=== PATIENT | male | born 1980 ===

== ENCOUNTER 2021-07-01 20:10 | Inpatient (IN) | payer OTHER, SELFPAY ==
[~2021-07-01 20:10] MED LIST: Iopamidol-370 76% 500 ML 1 ML ONE
[2021-07-01] MEDS ORDERED: Rocuronium Bromide 10 MG/ML (10ML VIAL) ONE (20:18)
[2021-07-01] MEDS ORDERED: Fentanyl 100 MCG/2 ML VIAL ONE (20:18)
[2021-07-01 20:27] LABS: Hemoglobin 14.6 g/dL (14.0-18.0); Mean Corpuscular HGB CONC 34.5 g/dL (32.0-36.0); Mean Corpuscular Hemoglobin 31.6 pg (27.0-31.0); Mean Corpuscular Volume 91.6 fL (78.0-98.0); Mean Platelet Volume 7.4 fL (7.4-10.4); Platelet Count 307 thou/uL (130-400); RBC Distribution Width 13.2 % (11.5-14.5); Red Blood Cell (RBC) Count 4.63 mill/uL (4.70-6.10); White Blood Cell (WBC) Count 31.8 thou/uL (4.8-10.8)
[2021-07-01 20:40] LABS: INR-International Normal Ratio 1.3; PTT 33.8 sec (22.9-36.1)
[2021-07-01 20:46] LABS: Band 25 % (5-11); Lymphocytes 8 % (21-51); MDiff Complete? YES; Monocytes 4 % (0-10); Neutrophil 63 % (42-75); Platelet Morphology Comment Appears Adequate; RBC Morphology Normal
[2021-07-01 20:52] LABS: ALT (SGPT) 52 U/L (8-55); AST (SGOT) 98 U/L (5-34); Albumin 3.8 g/dL (3.5-5.0); Alkaline Phosphatase 98 U/L (40-110); Anion Gap 19 mmol/L (10-20); BUN (Urea Nitrogen) 9 mg/dL (8.9-20.6); Bilirubin, Total 0.5 mg/dL (0.2-1.2); Calc. Creatinine Clearance 0 mL/min (70-130); Calcium 8.1 mg/dL (7.8-10.44); Carbon Dioxide 18 mmol/L (22-29); Chloride 109 mmol/L (98-107); Globulin 2.3 g/dL (2.4-3.5); Glucose 101 mg/dL (70-105); Potassium 4.3 mmol/L (3.5-5.1); Protein, Total 6.1 g/dL (6.0-8.3); Sodium 142 mmol/L (136-145)
[2021-07-01] MEDS ORDERED: Ondansetron PF 4 MG/2 ML Vial IVP PRN (20:53)
[2021-07-01] MEDS ORDERED: Insulin Regular 300 UNITS/3 ML VIAL SC PRN (20:53)
[2021-07-01] MEDS ORDERED: Dextrose 50% Abboject 50 ML SYRINGE SLOW IVP PRN (20:53)
[2021-07-01] MEDS ORDERED: Morphine 2 MG/ML VIAL SLOW IVP PRN (20:53)
[2021-07-01] MEDS ORDERED: Dextrose 5% in Water 1,000 ML IV PRN (20:53)
[2021-07-01 21:05] LABS: Actual Bicarbonate (HCO3a) 16.9 mEq/L (22-28); Analyzer IN Cardio ER; Base Excess (BEa) -11.2 mEq/L (-2.0 to +3.0); Calcium, Ionized (arterial) 1.07 mmol/L (1.12-1.30); Carboxyhemoglobin (COHb) 0.3 gm% (0.0-3.0); Hemoglobin (Hb) 13.2 g/dL (14.0-18.0); O2 Tension (PaO2), arterial 322.3 mmHg (80.0-100.0); Potassium - ABG Lab 4.04 mmol/L (3.70-5.30)
[2021-07-01 21:12] LABS: Puncture Site LRA; pH, Arterial 7.18 (7.35-7.45)
[2021-07-01] MEDS ORDERED: Sodium Chloride 0.9% (PF) 10 ML VIAL FS PRN (21:15)
[2021-07-01] MEDS ORDERED: Calcium Chloride 1 GM/10 ML Abboject SYRINGE IVP SCH (22:00)
[2021-07-01 23:33] LABS: Lactic Acid 4.2 mmol/L (0.5-2.2)
[2021-07-02] MEDS: Sodium Chloride 0.9% 1,000 ML IV SCH ×4 (00:15→23:46)
[2021-07-02] MEDS ORDERED: Sodium Chloride 0.9% 1,000 ML IV SCH (00:15)
[2021-07-02 01:13] LABS: Hemoglobin 13.1 g/dL (14.0-18.0); Mean Corpuscular HGB CONC 34.3 g/dL (32.0-36.0); Mean Corpuscular Hemoglobin 30.6 pg (27.0-31.0); Mean Corpuscular Volume 89.4 fL (78.0-98.0); Mean Platelet Volume 7.7 fL (7.4-10.4); Platelet Count 257 thou/uL (130-400); RBC Distribution Width 13.7 % (11.5-14.5); Red Blood Cell (RBC) Count 4.26 mill/uL (4.70-6.10); White Blood Cell (WBC) Count 20.6 thou/uL (4.8-10.8)
[2021-07-02 01:20] LABS: Band 10 % (5-11); Lymphocytes 10 % (21-51); MDiff Complete? YES; Monocytes 20 % (0-10); Neutrophil 59 % (42-75); Platelet Morphology Comment Appears Adequate; RBC Morphology Normal; Reactive Lymphocytes 1 % (0-10)
[2021-07-02 01:23] LABS: Anion Gap 17 mmol/L (10-20); BUN (Urea Nitrogen) 16 mg/dL (8.9-20.6); Calc. Creatinine Clearance 0 mL/min (70-130); Calcium 7.8 mg/dL (7.8-10.44); Carbon Dioxide 20 mmol/L (22-29); Chloride 110 mmol/L (98-107); Glucose 83 mg/dL (70-105); Potassium 4.5 mmol/L (3.5-5.1); Sodium 142 mmol/L (136-145)
[2021-07-02] MEDS ORDERED: Acetaminophen 650 MG Suppository PR PRN (04:19)
[2021-07-02] MEDS ORDERED: hydrALAZINE 20 MG/ML VIAL SLOW IVP PRN (04:20)
[2021-07-02 04:50] LABS: Band 13 % (5-11); Hemoglobin 12.9 g/dL (14.0-18.0); Lymphocytes 2 % (21-51); MDiff Complete? YES; Mean Corpuscular HGB CONC 35.1 g/dL (32.0-36.0); Mean Corpuscular Hemoglobin 31.3 pg (27.0-31.0); Mean Corpuscular Volume 89.2 fL (78.0-98.0); Mean Platelet Volume 8.2 fL (7.4-10.4); Monocytes 6 % (0-10); Neutrophil 79 % (42-75); Platelet Count 209 thou/uL (130-400); Platelet Morphology Comment Appears Adequate; RBC Distribution Width 13.8 % (11.5-14.5); White Blood Cell (WBC) Count 22.4 thou/uL (4.8-10.8)
[2021-07-02 04:53] LABS: Phosphorus 3.5 mg/dL (2.3-4.7)
[2021-07-02 05:10] LABS: Anion Gap 17 mmol/L (10-20); BUN (Urea Nitrogen) 18 mg/dL (8.9-20.6); Calc. Creatinine Clearance 98 mL/min (70-130); Carbon Dioxide 21 mmol/L (22-29); Chloride 110 mmol/L (98-107); Glucose 96 mg/dL (70-105); Magnesium 1.5 mg/dL (1.6-2.6); Sodium 143 mmol/L (136-145)
[2021-07-02] MEDS: ceFAZolin Sodium/D5W 2 GM in Premix Bag 1 BAG IVPB SCH ×3 (06:10→22:01)
[2021-07-02] MEDS ORDERED: Magnesium Sulfate 4 GM in Sodium Chloride 0.9% 250 ML 250 ML IV SCH (07:15)
[2021-07-02] MEDS: Pantoprazole 40 MG VIAL IVP SCH (08:09)
[2021-07-02] MEDS: Acetaminophen 650 MG/20.3 ML UDCUP PO SCH ×3 (08:24→20:35)
[2021-07-02] MEDS ORDERED: Fentanyl CADD 100 ML ONE (08:31)
[2021-07-02] MEDS: Labetalol HCl 100 MG/20 ML VIAL SLOW IVP PRN ×2 (09:42→11:12)
[2021-07-02 10:26] LABS: Sodium 142 mmol/L (136-145)
[2021-07-02 10:58] LABS: Actual Bicarbonate (HCO3a) 18.3 mEq/L (22-28); Base Excess (BEa) -4.5 mEq/L (-2.0 to +3.0); CO2 Tension 27.3 mmHg (35.0-45.0); Calcium, Ionized (arterial) 1.09 mmol/L (1.12-1.30); Carboxyhemoglobin (COHb) 0.3 gm% (0.0-3.0); Hemoglobin (Hb) 11.5 g/dL (14.0-18.0); O2 Tension (PaO2), arterial 113.8 mmHg (80.0-100.0); Potassium - ABG Lab 4.29 mmol/L (3.70-5.30); pH, Arterial 7.45 (7.35-7.45)
[2021-07-02 11:05] LABS: ALV-art Gradient 208.575 mmHg (0-20)
[2021-07-02] MEDS ORDERED: Calcium Chloride 1 GM/10 ML Abboject SYRINGE IVP SCH (11:15)
[2021-07-02 14:31] LABS: Anion Gap 14 mmol/L (10-20); BUN (Urea Nitrogen) 22 mg/dL (8.9-20.6); Calc. Creatinine Clearance 120 mL/min (70-130); Calcium 10.1 mg/dL (7.8-10.44); Carbon Dioxide 19 mmol/L (22-29); Chloride 114 mmol/L (98-107); Glucose 120 mg/dL (70-105); Magnesium 2.7 mg/dL (1.6-2.6); Potassium 4.7 mmol/L (3.5-5.1); Sodium 142 mmol/L (136-145)
[2021-07-02 17:31] LABS: SARS-CoV-2 NAA Rapid Test Not Detected (NotDetected)
[2021-07-03] MEDS: Acetaminophen 650 MG/20.3 ML UDCUP PO SCH ×4 (03:32→20:49)
[2021-07-03] MEDS: hydrALAZINE 20 MG/ML VIAL SLOW IVP PRN ×2 (03:33→07:57)
[2021-07-03 04:23] LABS: Band 28 % (5-11); Hemoglobin 9.9 g/dL (14.0-18.0); Lymphocytes 12 % (21-51); MDiff Complete? YES; Mean Corpuscular HGB CONC 34.8 g/dL (32.0-36.0); Mean Corpuscular Hemoglobin 31.3 pg (27.0-31.0); Mean Corpuscular Volume 89.9 fL (78.0-98.0); Mean Platelet Volume 8.9 fL (7.4-10.4); Monocytes 11 % (0-10); Neutrophil 48 % (42-75); Platelet Count 147 thou/uL (130-400); Platelet Morphology Comment Appears Adequate; RBC Distribution Width 13.5 % (11.5-14.5); RBC Morphology Normal; Reactive Lymphocytes 1 % (0-10); Red Blood Cell (RBC) Count 3.17 mill/uL (4.70-6.10); White Blood Cell (WBC) Count 19.2 thou/uL (4.8-10.8)
[2021-07-03] MEDS ORDERED: hydrALAZINE 20 MG/ML VIAL SLOW IVP SCH (05:00)
[2021-07-03] MEDS: ceFAZolin Sodium/D5W 2 GM in Premix Bag 1 BAG IVPB SCH ×3 (05:24→21:45)
[2021-07-03] MEDS: Sodium Chloride 0.9% 1,000 ML IV SCH (07:18)
[2021-07-03] MEDS: Pantoprazole 40 MG VIAL IVP SCH (07:58)
[2021-07-03 08:19] LABS: Anion Gap 10 mmol/L (10-20); BUN (Urea Nitrogen) 17 mg/dL (8.9-20.6); Calc. Creatinine Clearance 180 mL/min (70-130); Calcium 8.5 mg/dL (7.8-10.44); Carbon Dioxide 23 mmol/L (22-29); Chloride 113 mmol/L (98-107); Glucose 109 mg/dL (70-105); Magnesium 1.8 mg/dL (1.6-2.6); Phosphorus 1.7 mg/dL (2.3-4.7); Potassium 4.1 mmol/L (3.5-5.1); Sodium 142 mmol/L (136-145)
[2021-07-03] MEDS ORDERED: Furosemide 20 MG/2 ML VIAL SLOW IVP SCH ×2 (10:00→17:45)
[2021-07-03 15:10] VITALS: BMI 27.1
[2021-07-03] MEDS ORDERED: Magnesium Sulfate 3 GM in Sodium Chloride 0.9% 100 ML IV SCH (19:15)
[2021-07-03] MEDS ORDERED: Potassium Phosphate 30 MMOL in Sodium Chloride 0.9% 500 ML IVPB SCH (19:15)
[2021-07-03 19:56] LABS: SARS-CoV-2 IgG Ab Non-Reactive (NonReactive)
[2021-07-03 20:06] LABS: SARS-CoV-2 IgG Index 0.05 S/CO (< 1.40)
[2021-07-04] MEDS ORDERED: Fentanyl CADD 100 ML ONE (00:28)
[2021-07-04] MEDS: Fentanyl CADD 100 ML IV SCH (00:31)
[2021-07-04] MEDS: hydrALAZINE 20 MG/ML VIAL SLOW IVP PRN (01:09)
[2021-07-04] MEDS: Acetaminophen 650 MG/20.3 ML UDCUP PO SCH ×4 (03:05→20:36)
[2021-07-04] MEDS: ceFAZolin Sodium/D5W 2 GM in Premix Bag 1 BAG IVPB SCH ×3 (05:06→22:43)
[2021-07-04 07:30] LABS: #Lymphocytes 0.9 thou/uL (1.20-3.40); #Monocytes 0.7 thou/uL (0.11-0.59); #Neutrophils 17.2 thou/uL (1.40-6.50); %Basophils 0.2 % (0.0-1.0); %Eosinophils 0.1 % (0.0-10.0); %Lymphocytes 4.8 % (21.0-51.0); %Monocytes 3.8 % (0.0-10.0); %Neutrophils 91.2 % (42.0-75.0); Hemoglobin 9.9 g/dL (14.0-18.0); Mean Corpuscular HGB CONC 34.6 g/dL (32.0-36.0); Mean Corpuscular Hemoglobin 31.4 pg (27.0-31.0); Mean Corpuscular Volume 90.7 fL (78.0-98.0); Mean Platelet Volume 8.5 fL (7.4-10.4); Platelet Count 165 thou/uL (130-400); RBC Distribution Width 13.6 % (11.5-14.5); Red Blood Cell (RBC) Count 3.14 mill/uL (4.70-6.10); White Blood Cell (WBC) Count 18.8 thou/uL (4.8-10.8)
[2021-07-04 07:51] LABS: Anion Gap 11 mmol/L (10-20); BUN (Urea Nitrogen) 13 mg/dL (8.9-20.6); Calc. Creatinine Clearance 179 mL/min (70-130); Calcium 8.3 mg/dL (7.8-10.44); Carbon Dioxide 25 mmol/L (22-29); Chloride 108 mmol/L (98-107); Glucose 98 mg/dL (70-105); Phosphorus 2.1 mg/dL (2.3-4.7); Potassium 3.7 mmol/L (3.5-5.1); Sodium 140 mmol/L (136-145)
[2021-07-04] MEDS: Pantoprazole 40 MG VIAL IVP SCH (08:04)
[2021-07-04] MEDS ORDERED: Morphine 4 MG/ML VIAL SLOW IVP PRN (14:30)
[2021-07-04 16:22] LABS: Base Excess (BEa) -0.6 mEq/L (-2.0 to +3.0); CO2 Tension 29.2 mmHg (35.0-45.0); Calcium, Ionized (arterial) 1.13 mmol/L (1.12-1.30); Carboxyhemoglobin (COHb) 0.3 gm% (0.0-3.0); Hemoglobin (Hb) 10.5 g/dL (14.0-18.0); O2 Tension (PaO2), arterial 105.7 mmHg (80.0-100.0); Potassium - ABG Lab 3.33 mmol/L (3.70-5.30); Puncture Site Arterial Line; pH, Arterial 7.49 (7.35-7.45)
[2021-07-04] MEDS ORDERED: Lorazepam 2 MG/ML VIAL ONE (16:29)
[2021-07-04 16:40] LABS: Hemoglobin 10.2 g/dL (14.0-18.0); Mean Corpuscular HGB CONC 33.7 g/dL (32.0-36.0); Mean Corpuscular Hemoglobin 30.9 pg (27.0-31.0); Mean Corpuscular Volume 91.7 fL (78.0-98.0); Mean Platelet Volume 8.5 fL (7.4-10.4); Platelet Count 191 thou/uL (130-400); RBC Distribution Width 13.5 % (11.5-14.5); Red Blood Cell (RBC) Count 3.29 mill/uL (4.70-6.10); White Blood Cell (WBC) Count 19.5 thou/uL (4.8-10.8)
[2021-07-04 16:51] LABS: INR-International Normal Ratio 1.2; Prothrombin Time 15.1 sec (12.0-14.7)
[2021-07-04 16:52] LABS: PTT 34.3 sec (22.9-36.1)
[2021-07-04 16:53] LABS: Lactic Acid 2.4 mmol/L (0.5-2.2)
[2021-07-04 16:56] LABS: Bilirubin, Direct 0.3 mg/dL (0.1-0.3); Phosphorus 2.1 mg/dL (2.3-4.7)
[2021-07-04 16:57] LABS: Band 12 % (5-11); Lymphocytes 5 % (21-51); MDiff Complete? YES; Monocytes 3 % (0-10); Myelocyte 1 % (0-0); Neutrophil 78 % (42-75); Platelet Morphology Comment Appears Adequate; Polychromasia SLIGHT = 2-3 cells (100X) (0-2/hpf); Reactive Lymphocytes 1 % (0-10); Vacuoles SLIGHT
[2021-07-04 17:02] LABS: CKMB 0.7 ng/mL (0-6.6); Troponin I Less than 0.010 ng/mL (< 0.028)
[2021-07-04 17:06] LABS: ALT (SGPT) 15 U/L (8-55); AST (SGOT) 42 U/L (5-34); Albumin 3.1 g/dL (3.5-5.0); Alkaline Phosphatase 51 U/L (40-110); Anion Gap 13 mmol/L (10-20); BUN (Urea Nitrogen) 14 mg/dL (8.9-20.6); Bilirubin, Total 0.6 mg/dL (0.2-1.2); CK (CPK) 117 U/L (30-200); Calc. Creatinine Clearance 179 mL/min (70-130); Calcium 8.7 mg/dL (7.8-10.44); Carbon Dioxide 23 mmol/L (22-29); Chloride 108 mmol/L (98-107); Gamma GT (GGT) 14 U/L (12-64); Globulin 2.6 g/dL (2.4-3.5); Glucose 114 mg/dL (70-105); Lipase 36 U/L (8-78); Magnesium 1.9 mg/dL (1.6-2.6); Potassium 3.5 mmol/L (3.5-5.1); Protein, Total 5.7 g/dL (6.0-8.3); Sodium 140 mmol/L (136-145)
[2021-07-04 17:09] LABS: Hemoglobin A1c 4.7 % (4.0-6.0)
[2021-07-04] MEDS: Sodium Chloride 0.9% 1,000 ML IV SCH (17:30)
[2021-07-04] MEDS ORDERED: Lorazepam 2 MG/ML VIAL SLOW IVP SCH (18:00)
[2021-07-04 18:08] LABS: Bilirubin Negative (Negative); Blood, Urine Negative (Negative); Clarity Extra Turbid (Clear); Glucose, Urine (Dipstick) Normal (Negative); Ketone, Urine 10 mg/dL (Negative); Leukocyte Negative Leu/uL (Negative); Nitrite Negative (Negative); Protein, Urine (Dipstick) 50 mg/dL (Neg-Trace); Specific Gravity, Urine 1.036 (1.002-1.036); Urobilinogen Normal mg/dL (Less than 2)
[2021-07-04 20:13] LABS: Actual Bicarbonate (HCO3a) 23.3 mEq/L (22-28); Base Excess (BEa) 0.4 mEq/L (-2.0 to +3.0); CO2 Tension 31.4 mmHg (35.0-45.0); Calcium, Ionized (arterial) 1.12 mmol/L (1.12-1.30); Carboxyhemoglobin (COHb) 0.3 gm% (0.0-3.0); Hemoglobin (Hb) 9.9 g/dL (14.0-18.0); O2 Tension (PaO2), arterial 353.3 mmHg (80.0-100.0); Potassium - ABG Lab 3.49 mmol/L (3.70-5.30); pH, Arterial 7.49 (7.35-7.45)
[2021-07-04] MEDS ORDERED: Fentanyl BOLUS 250 ML IVPB PRN (20:15)
[2021-07-04] MEDS ORDERED: Fentanyl CADD 100 ML IV SCH (20:15)
[2021-07-04] MEDS ORDERED: Potassium Phosphate 30 MMOL in Sodium Chloride 0.9% 250 ML 250 ML IVPB SCH (21:00)
[2021-07-05 00:33] LABS: Lactic Acid 1.1 mmol/L (0.5-2.2)
[2021-07-05 00:57] LABS: INR-International Normal Ratio 1.2; Prothrombin Time 15.7 sec (12.0-14.7)
[2021-07-05 00:58] LABS: PTT 40.5 sec (22.9-36.1)
[2021-07-05 01:01] LABS: Hemoglobin 7.8 g/dL (14.0-18.0); Mean Corpuscular HGB CONC 34.3 g/dL (32.0-36.0); Mean Corpuscular Hemoglobin 31.5 pg (27.0-31.0); Mean Corpuscular Volume 91.9 fL (78.0-98.0); Mean Platelet Volume 8.3 fL (7.4-10.4); Platelet Count 163 thou/uL (130-400); RBC Distribution Width 13.2 % (11.5-14.5); Red Blood Cell (RBC) Count 2.48 mill/uL (4.70-6.10); White Blood Cell (WBC) Count 17.4 thou/uL (4.8-10.8)
[2021-07-05 01:08] LABS: ALT (SGPT) 10 U/L (8-55); AST (SGOT) 42 U/L (5-34); Albumin 2.8 g/dL (3.5-5.0); Alkaline Phosphatase 43 U/L (40-110); Anion Gap 10 mmol/L (10-20); BUN (Urea Nitrogen) 13 mg/dL (8.9-20.6); Bilirubin, Direct 0.3 mg/dL (0.1-0.3); Bilirubin, Total 0.6 mg/dL (0.2-1.2); Calc. Creatinine Clearance 201 mL/min (70-130); Calcium 7.8 mg/dL (7.8-10.44); Carbon Dioxide 25 mmol/L (22-29); Chloride 110 mmol/L (98-107); Globulin 1.9 g/dL (2.4-3.5); Glucose 96 mg/dL (70-105); Lipase 36 U/L (8-78); Magnesium 1.9 mg/dL (1.6-2.6); Phosphorus 2.6 mg/dL (2.3-4.7); Potassium 3.6 mmol/L (3.5-5.1); Protein, Total 4.7 g/dL (6.0-8.3); Sodium 141 mmol/L (136-145)
[2021-07-05 01:18] LABS: Band 10 % (5-11); Lymphocytes 10 % (21-51); MDiff Complete? YES; Monocytes 3 % (0-10); Neutrophil 77 % (42-75); Platelet Morphology Comment Appears Adequate; Polychromasia SLIGHT = 2-3 cells (100X) (0-2/hpf)
[2021-07-05] MEDS: Sodium Chloride 0.9% 1,000 ML IV SCH ×3 (01:56→18:00)
[2021-07-05] MEDS ORDERED: Magnesium Sulfate 4 GM in Sodium Chloride 0.9% 250 ML 250 ML IVPB SCH (02:00)
[2021-07-05] MEDS: Acetaminophen 650 MG/20.3 ML UDCUP PO SCH ×4 (03:00→20:51)
[2021-07-05] MEDS ORDERED: Fentanyl CADD 100 ML ONE (03:40)
[2021-07-05] MEDS: Fentanyl CADD 100 ML IV SCH (03:42)
[2021-07-05 04:01] LABS: Actual Bicarbonate (HCO3a) 22.8 mEq/L (22-28); Base Excess (BEa) -0.6 mEq/L (-2.0 to +3.0); Carboxyhemoglobin (COHb) 0.3 gm% (0.0-3.0); Hemoglobin (Hb) 8.6 g/dL (14.0-18.0); O2 Tension (PaO2), arterial 399.6 mmHg (80.0-100.0); Potassium - ABG Lab 3.38 mmol/L (3.70-5.30); pH, Arterial 7.47 (7.35-7.45)
[2021-07-05 04:02] LABS: Puncture Site LINE
[2021-07-05 04:23] LABS: Bilirubin Negative (Negative); Blood, Urine 2+ (Negative); Clarity Clear (Clear); Glucose, Urine (Dipstick) Normal (Negative); Ketone, Urine 10 mg/dL (Negative); Leukocyte Negative Leu/uL (Negative); Nitrite Negative (Negative); Protein, Urine (Dipstick) 20 mg/dL (Neg-Trace); Specific Gravity, Urine 1.032 (1.002-1.036); Urobilinogen Normal mg/dL (Less than 2); pH, Urine 5.5 (5.0-9.0)
[2021-07-05] MEDS: ceFAZolin Sodium/D5W 2 GM in Premix Bag 1 BAG IVPB SCH (05:32)
[2021-07-05 06:19] LABS: Band 23 % (5-11); Hemoglobin 8.9 g/dL (14.0-18.0); Lymphocytes 7 % (21-51); MDiff Complete? YES; Mean Corpuscular HGB CONC 34.1 g/dL (32.0-36.0); Mean Corpuscular Hemoglobin 31.1 pg (27.0-31.0); Mean Corpuscular Volume 91.3 fL (78.0-98.0); Monocytes 3 % (0-10); Neutrophil 67 % (42-75); Platelet Count 156 thou/uL (130-400); Platelet Morphology Comment Appears Adequate; RBC Distribution Width 13.3 % (11.5-14.5); Red Blood Cell (RBC) Count 2.85 mill/uL (4.70-6.10); White Blood Cell (WBC) Count 15.3 thou/uL (4.8-10.8)
[2021-07-05 06:20] LABS: Lactic Acid 0.9 mmol/L (0.5-2.2)
[2021-07-05 06:25] LABS: ALT (SGPT) 10 U/L (8-55); AST (SGOT) 38 U/L (5-34); Albumin 2.7 g/dL (3.5-5.0); Alkaline Phosphatase 45 U/L (40-110); Anion Gap 9 mmol/L (10-20); BUN (Urea Nitrogen) 11 mg/dL (8.9-20.6); Bilirubin, Direct 0.3 mg/dL (0.1-0.3); Bilirubin, Total 0.6 mg/dL (0.2-1.2); CK (CPK) 142 U/L (30-200); Calc. Creatinine Clearance 218 mL/min (70-130); Calcium 7.7 mg/dL (7.8-10.44); Carbon Dioxide 24 mmol/L (22-29); Chloride 113 mmol/L (98-107); Globulin 1.8 g/dL (2.4-3.5); Glucose 103 mg/dL (70-105); INR-International Normal Ratio 1.3; Lipase 43 U/L (8-78); Magnesium 2.5 mg/dL (1.6-2.6); Phosphorus 2.2 mg/dL (2.3-4.7); Potassium 3.5 mmol/L (3.5-5.1); Protein, Total 4.5 g/dL (6.0-8.3); Prothrombin Time 16.2 sec (12.0-14.7); Sodium 142 mmol/L (136-145)
[2021-07-05 06:26] LABS: PTT 45.1 sec (22.9-36.1)
[2021-07-05 06:29] LABS: CKMB 1.1 ng/mL (0-6.6); Troponin I Less than 0.010 ng/mL (< 0.028)
[2021-07-05] MEDS ORDERED: Potassium Phosphate 30 MMOL in Sodium Chloride 0.9% 250 ML 250 ML IVPB SCH (08:00)
[2021-07-05] MEDS ORDERED: Potassium Phosphate 20 MMOL in Sodium Chloride 0.9% 250 ML 250 ML IVPB SCH (08:15)
[2021-07-05] MEDS: Pantoprazole 40 MG VIAL IVP SCH (09:26)
[2021-07-05] MEDS ORDERED: Midazolam HCl 2 mg/2 ml Vial ONE (11:15)
[2021-07-05] MEDS ORDERED: Vecuronium 10 MG VIAL ONE (11:21)
[2021-07-05] MEDS ORDERED: Sterile Water 10 ML ONE (11:21)
[2021-07-05] MEDS ORDERED: Vecuronium 10 MG VIAL IV SCH (12:00)
[2021-07-05] MEDS ORDERED: Piperacillin/Tazobactam 3.375 GM in Sodium Chloride 0.9% 100 ML IVPB SCH (12:00)
[2021-07-05] MEDS ORDERED: Midazolam HCl 2 mg/2 ml Vial SLOW IVP SCH (12:00)
[2021-07-05 12:54] LABS: Mean Corpuscular HGB CONC 34.1 g/dL (32.0-36.0); Mean Corpuscular Hemoglobin 31.6 pg (27.0-31.0); Mean Corpuscular Volume 92.7 fL (78.0-98.0); Mean Platelet Volume 7.8 fL (7.4-10.4); Platelet Count 146 thou/uL (130-400); RBC Distribution Width 13.2 % (11.5-14.5); Red Blood Cell (RBC) Count 2.53 mill/uL (4.70-6.10)
[2021-07-05 13:05] LABS: INR-International Normal Ratio 1.4; Prothrombin Time 17.5 sec (12.0-14.7)
[2021-07-05 13:11] LABS: Lactic Acid 0.7 mmol/L (0.5-2.2)
[2021-07-05 13:31] LABS: Albumin 2.7 g/dL (3.5-5.0)
[2021-07-05 13:32] LABS: Chloride 111 mmol/L (98-107); Potassium 3.7 mmol/L (3.5-5.1); Sodium 141 mmol/L (136-145)
[2021-07-05 13:33] LABS: Calcium 8.3 mg/dL (7.8-10.44)
[2021-07-05 13:34] LABS: Globulin 2.5 g/dL (2.4-3.5); Glucose 104 mg/dL (70-105); Protein, Total 5.2 g/dL (6.0-8.3)
[2021-07-05 13:35] LABS: Anion Gap 9 mmol/L (10-20); Bilirubin, Total 0.5 mg/dL (0.2-1.2); Carbon Dioxide 25 mmol/L (22-29)
[2021-07-05 13:36] LABS: Alkaline Phosphatase 50 U/L (40-110)
[2021-07-05 13:37] LABS: Band 18 % (5-11); Calc. Creatinine Clearance 226 mL/min (70-130); Dohle Bodies SLIGHT; Eosinophils 1 % (0-10); Lymphocytes 6 % (21-51); MDiff Complete? YES; Neutrophil 75 % (42-75); Platelet Morphology Comment Appears Adequate; Polychromasia SLIGHT = 2-3 cells (100X) (0-2/hpf)
[2021-07-05 13:38] LABS: BUN (Urea Nitrogen) 11 mg/dL (8.9-20.6)
[2021-07-05 13:39] LABS: AST (SGOT) 38 U/L (5-34); Bilirubin, Direct 0.3 mg/dL (0.1-0.3)
[2021-07-05 13:40] LABS: ALT (SGPT) 9 U/L (8-55); CK (CPK) 134 U/L (30-200); Lipase 53 U/L (8-78)
[2021-07-05 14:16] LABS: Magnesium 2.2 mg/dL (1.6-2.6)
[2021-07-05 14:19] LABS: Phosphorus 3.3 mg/dL (2.3-4.7)
[2021-07-05 17:15] LABS: Base Excess (BEa) -2.3 mEq/L (-2.0 to +3.0); CO2 Tension 35.6 mmHg (35.0-45.0); Calcium, Ionized (arterial) 1.14 mmol/L (1.12-1.30); Carboxyhemoglobin (COHb) 0.2 gm% (0.0-3.0); Hemoglobin (Hb) 8.4 g/dL (14.0-18.0); O2 Tension (PaO2), arterial 457.7 mmHg (80.0-100.0); Potassium - ABG Lab 3.72 mmol/L (3.70-5.30); pH, Arterial 7.41 (7.35-7.45)
[2021-07-05 17:19] LABS: Puncture Site Arterial Line
[2021-07-05 18:15] LABS: Hemoglobin 7.5 g/dL (14.0-18.0); Mean Corpuscular HGB CONC 33.3 g/dL (32.0-36.0); Mean Corpuscular Hemoglobin 31.3 pg (27.0-31.0); Mean Platelet Volume 7.6 fL (7.4-10.4); Platelet Count 145 thou/uL (130-400); RBC Distribution Width 13.1 % (11.5-14.5); White Blood Cell (WBC) Count 14.2 thou/uL (4.8-10.8)
[2021-07-05 18:21] LABS: INR-International Normal Ratio 1.5; PTT 46.8 sec (22.9-36.1); Prothrombin Time 18.1 sec (12.0-14.7)
[2021-07-05 18:28] LABS: Lactic Acid 0.9 mmol/L (0.5-2.2)
[2021-07-05 18:33] LABS: Band 10 % (5-11); Dohle Bodies SLIGHT; Eosinophils 2 % (0-10); Lymphocytes 8 % (21-51); MDiff Complete? YES; Monocytes 1 % (0-10); Neutrophil 79 % (42-75); Platelet Morphology Comment Appears Adequate; Polychromasia SLIGHT = 2-3 cells (100X) (0-2/hpf)
[2021-07-05 18:36] LABS: ALT (SGPT) 8 U/L (8-55); AST (SGOT) 35 U/L (5-34); Albumin 2.6 g/dL (3.5-5.0); Alkaline Phosphatase 45 U/L (40-110); Anion Gap 12 mmol/L (10-20); BUN (Urea Nitrogen) 14 mg/dL (8.9-20.6); Bilirubin, Direct 0.3 mg/dL (0.1-0.3); Bilirubin, Total 0.6 mg/dL (0.2-1.2); CK (CPK) 154 U/L (30-200); Calc. Creatinine Clearance 210 mL/min (70-130); Calcium 7.8 mg/dL (7.8-10.44); Carbon Dioxide 23 mmol/L (22-29); Chloride 113 mmol/L (98-107); Globulin 1.8 g/dL (2.4-3.5); Glucose 106 mg/dL (70-105); Lipase 78 U/L (8-78); Magnesium 2.2 mg/dL (1.6-2.6); Phosphorus 2.2 mg/dL (2.3-4.7); Potassium 3.6 mmol/L (3.5-5.1); Protein, Total 4.4 g/dL (6.0-8.3); Sodium 144 mmol/L (136-145)
[2021-07-05 18:37] LABS: CKMB 1.4 ng/mL (0-6.6)
[2021-07-05] MEDS: Piperacillin/Tazobactam 3.375 GM in Sodium Chloride 0.9% 100 ML IVPB SCH (19:34)
[2021-07-05 19:38] LABS: Bacteria/HPF None Seen HPF (None Seen); Bilirubin Negative (Negative); Blood, Urine 2+ (Negative); Clarity Clear (Clear); Glucose, Urine (Dipstick) Normal (Negative); Ketone, Urine 10 mg/dL (Negative); Leukocyte Negative Leu/uL (Negative); Nitrite Negative (Negative); Protein, Urine (Dipstick) 30 mg/dL (Neg-Trace); RBC/HPF 21-50 HPF (0-3); Specific Gravity, Urine 1.036 (1.002-1.036); Squamous Epithelial None Seen HPF (0-3); Urobilinogen Normal mg/dL (Less than 2)
[2021-07-05] MEDS ORDERED: Albumin 25% 25 GM/100 ML BOT IVPB SCH (20:45)
[2021-07-05] MEDS ORDERED: Furosemide 20 MG/2 ML VIAL SLOW IVP SCH (21:30)
[2021-07-05 22:31] LABS: Actual Bicarbonate (HCO3a) 22.9 mEq/L (22-28); Base Excess (BEa) -0.3 mEq/L (-2.0 to +3.0); CO2 Tension 30.9 mmHg (35.0-45.0); Calcium, Ionized (arterial) 1.13 mmol/L (1.12-1.30); Carboxyhemoglobin (COHb) 0.4 gm% (0.0-3.0); Hemoglobin (Hb) 7.2 g/dL (14.0-18.0); pH, Arterial 7.49 (7.35-7.45)
[2021-07-05 22:35] LABS: ALV-art Gradient -419.975 mmHg (0-20)
[2021-07-05] MEDS: Cefepime 2 GM in Sodium Chloride 0.9% 100 ML IVPB SCH (23:33)
[2021-07-06 00:07] LABS: #Eosinphils 0.2 thou/uL (0.0-0.7); #Lymphocytes 0.8 thou/uL (1.20-3.40); #Monocytes 0.7 thou/uL (0.11-0.59); #Neutrophils 10.9 thou/uL (1.40-6.50); %Basophils 0.1 % (0.0-1.0); %Eosinophils 1.2 % (0.0-10.0); %Lymphocytes 6.3 % (21.0-51.0); %Monocytes 5.4 % (0.0-10.0); Hemoglobin 9.7 g/dL (14.0-18.0); Mean Corpuscular HGB CONC 33.4 g/dL (32.0-36.0); Mean Corpuscular Hemoglobin 30.6 pg (27.0-31.0); Mean Corpuscular Volume 91.4 fL (78.0-98.0); Platelet Count 132 thou/uL (130-400); RBC Distribution Width 13.2 % (11.5-14.5); Red Blood Cell (RBC) Count 3.16 mill/uL (4.70-6.10); White Blood Cell (WBC) Count 12.5 thou/uL (4.8-10.8)
[2021-07-06 00:21] LABS: INR-International Normal Ratio 1.5; Prothrombin Time 18.7 sec (12.0-14.7)
[2021-07-06 00:25] LABS: Lactic Acid 0.8 mmol/L (0.5-2.2)
[2021-07-06 00:29] LABS: ALT (SGPT) 8 U/L (8-55); AST (SGOT) 34 U/L (5-34); Albumin 2.9 g/dL (3.5-5.0); Alkaline Phosphatase 42 U/L (40-110); Anion Gap 11 mmol/L (10-20); BUN (Urea Nitrogen) 12 mg/dL (8.9-20.6); Bilirubin, Direct 0.4 mg/dL (0.1-0.3); Bilirubin, Total 0.6 mg/dL (0.2-1.2); Calc. Creatinine Clearance 194 mL/min (70-130); Calcium 8.2 mg/dL (7.8-10.44); Carbon Dioxide 23 mmol/L (22-29); Chloride 112 mmol/L (98-107); Globulin 2.4 g/dL (2.4-3.5); Glucose 99 mg/dL (70-105); Lipase 90 U/L (8-78); Phosphorus 2.2 mg/dL (2.3-4.7); Potassium 3.3 mmol/L (3.5-5.1); Protein, Total 5.3 g/dL (6.0-8.3); Sodium 143 mmol/L (136-145)
[2021-07-06] MEDS ORDERED: Fentanyl CADD 100 ML ONE (02:45)
[2021-07-06] MEDS: Acetaminophen 650 MG/20.3 ML UDCUP PO SCH ×3 (02:53→17:44)
[2021-07-06] MEDS: Piperacillin/Tazobactam 3.375 GM in Sodium Chloride 0.9% 100 ML IVPB SCH (03:04)
[2021-07-06] MEDS: Sodium Chloride 0.9% 1,000 ML IV SCH ×2 (03:28→09:58)
[2021-07-06] MEDS ORDERED: Potassium Chloride 40 MEQ in Premix Bag 1 BAG IVPB SCH (04:00)
[2021-07-06] MEDS ORDERED: Potassium Phosphate 20 MMOL in Sodium Chloride 0.9% 250 ML 250 ML IVPB SCH (04:00)
[2021-07-06 04:57] LABS: Actual Bicarbonate (HCO3a) 23.6 mEq/L (22-28); Base Excess (BEa) 0.5 mEq/L (-2.0 to +3.0); CO2 Tension 30.7 mmHg (35.0-45.0); Calcium, Ionized (arterial) 1.12 mmol/L (1.12-1.30); Carboxyhemoglobin (COHb) 0.3 gm% (0.0-3.0); Hemoglobin (Hb) 6.6 g/dL (14.0-18.0); O2 Tension (PaO2), arterial 408.8 mmHg (80.0-100.0); Potassium - ABG Lab 3.58 mmol/L (3.70-5.30)
[2021-07-06 04:58] LABS: ALV-art Gradient 265.825 mmHg (0-20); Puncture Site LINE
[2021-07-06 06:34] LABS: INR-International Normal Ratio 1.6; PTT 50.9 sec (22.9-36.1); Prothrombin Time 19.3 sec (12.0-14.7)
[2021-07-06 06:50] LABS: Lactic Acid 0.9 mmol/L (0.5-2.2)
[2021-07-06 06:51] LABS: Magnesium 2.1 mg/dL (1.6-2.6); Phosphorus 2.7 mg/dL (2.3-4.7)
[2021-07-06 06:54] LABS: ALT (SGPT) 8 U/L (8-55); AST (SGOT) 30 U/L (5-34); Albumin 2.6 g/dL (3.5-5.0); Alkaline Phosphatase 42 U/L (40-110); Anion Gap 9 mmol/L (10-20); BUN (Urea Nitrogen) 11 mg/dL (8.9-20.6); Bilirubin, Direct 0.3 mg/dL (0.1-0.3); Bilirubin, Total 0.6 mg/dL (0.2-1.2); Calc. Creatinine Clearance 0 mL/min (70-130); Calcium 8.2 mg/dL (7.8-10.44); Carbon Dioxide 26 mmol/L (22-29); Chloride 115 mmol/L (98-107); Globulin 2.4 g/dL (2.4-3.5); Glucose 92 mg/dL (70-105); Lipase 119 U/L (8-78); Sodium 146 mmol/L (136-145)
[2021-07-06 08:15] LABS: Bacteria/HPF None Seen HPF (None Seen); Bilirubin Negative (Negative); Blood, Urine 2+ (Negative); Clarity Clear (Clear); Glucose, Urine (Dipstick) Normal (Negative); Ketone, Urine 20 mg/dL (Negative); Leukocyte Negative Leu/uL (Negative); Nitrite Negative (Negative); Protein, Urine (Dipstick) 20 mg/dL (Neg-Trace); RBC/HPF 21-50 HPF (0-3); Specific Gravity, Urine 1.029 (1.002-1.036); Squamous Epithelial None Seen HPF (0-3); Urobilinogen Normal mg/dL (Less than 2); WBC/HPF 0-3 HPF (0-3); pH, Urine 5.5 (5.0-9.0)
[2021-07-06 08:55] LABS: Hemoglobin 6.9 g/dL (14.0-18.0); Mean Corpuscular HGB CONC 32.4 g/dL (32.0-36.0); Mean Corpuscular Hemoglobin 30.2 pg (27.0-31.0); Mean Corpuscular Volume 93.2 fL (78.0-98.0); Mean Platelet Volume 8.4 fL (7.4-10.4); Platelet Count 160 thou/uL (130-400); RBC Distribution Width 13.3 % (11.5-14.5); Red Blood Cell (RBC) Count 2.28 mill/uL (4.70-6.10)
[2021-07-06 09:23] LABS: Band 21 % (5-11); Eosinophils 1 % (0-10); Lymphocytes 4 % (21-51); MDiff Complete? YES; Monocytes 4 % (0-10); Neutrophil 70 % (42-75); Platelet Morphology Comment Appears Adequate; Polychromasia SLIGHT = 2-3 cells (100X) (0-2/hpf)
[2021-07-06] MEDS: Cefepime 2 GM in Sodium Chloride 0.9% 100 ML IVPB SCH (09:56)
[2021-07-06] MEDS: Pantoprazole 40 MG VIAL IVP SCH (10:07)
[2021-07-06 10:54] LABS: Actual Bicarbonate (HCO3a) 21.7 mEq/L (22-28); CO2 Tension 31.7 mmHg (35.0-45.0); Calcium, Ionized (arterial) 1.14 mmol/L (1.12-1.30); Carboxyhemoglobin (COHb) 0.3 gm% (0.0-3.0); Hemoglobin (Hb) 6.8 g/dL (14.0-18.0); O2 Tension (PaO2), arterial 148.8 mmHg (80.0-100.0); pH, Arterial 7.45 (7.35-7.45)
[2021-07-06 10:56] LABS: Puncture Site Arterial Line
[2021-07-06 10:57] LABS: ALV-art Gradient 168.075 mmHg (0-20)
[2021-07-06] MEDS ORDERED: Piperacillin/Tazobactam 3.375 GM in Sodium Chloride 0.9% 100 ML IVPB SCH (12:00)
[2021-07-06] MEDS ORDERED: Morphine 10 MG/ML VIAL SLOW IVP PRN (12:09)
[2021-07-06] MEDS ORDERED: Lorazepam 2 MG/ML VIAL SLOW IVP PRN (12:10)
[2021-07-06 12:13] LABS: Mean Corpuscular HGB CONC 33.7 g/dL (32.0-36.0); Mean Corpuscular Hemoglobin 31.4 pg (27.0-31.0); Mean Corpuscular Volume 93.3 fL (78.0-98.0); Mean Platelet Volume 8.1 fL (7.4-10.4); Platelet Count 167 thou/uL (130-400); RBC Distribution Width 13.1 % (11.5-14.5); Red Blood Cell (RBC) Count 2.22 mill/uL (4.70-6.10); White Blood Cell (WBC) Count 14.5 thou/uL (4.8-10.8)
[2021-07-06] MEDS ORDERED: Heparin 30,000 units/30 ml VIAL SLOW IVP SCH (12:15)
[2021-07-06 12:21] LABS: Lactic Acid 0.8 mmol/L (0.5-2.2)
[2021-07-06 12:23] LABS: PTT 46.8 sec (22.9-36.1)
[2021-07-06 12:24] LABS: INR-International Normal Ratio 1.5; Prothrombin Time 18.5 sec (12.0-14.7)
[2021-07-06 12:27] LABS: ALT (SGPT) 9 U/L (8-55); AST (SGOT) 31 U/L (5-34); Albumin 2.7 g/dL (3.5-5.0); Alkaline Phosphatase 46 U/L (40-110); Anion Gap 11 mmol/L (10-20); BUN (Urea Nitrogen) 10 mg/dL (8.9-20.6); Bilirubin, Direct 0.3 mg/dL (0.1-0.3); Bilirubin, Total 0.5 mg/dL (0.2-1.2); Calc. Creatinine Clearance 0 mL/min (70-130); Calcium 7.9 mg/dL (7.8-10.44); Carbon Dioxide 24 mmol/L (22-29); Chloride 116 mmol/L (98-107); Globulin 1.8 g/dL (2.4-3.5); Glucose 101 mg/dL (70-105); Phosphorus 2.2 mg/dL (2.3-4.7); Potassium 3.5 mmol/L (3.5-5.1); Protein, Total 4.5 g/dL (6.0-8.3); Sodium 147 mmol/L (136-145)
[2021-07-06 12:40] LABS: Band 26 % (5-11); Eosinophils 1 % (0-10); Lymphocytes 4 % (21-51); MDiff Complete? YES; Monocytes 3 % (0-10); Neutrophil 66 % (42-75); Platelet Morphology Comment Appears Adequate; Polychromasia SLIGHT = 2-3 cells (100X) (0-2/hpf)
[2021-07-06] MEDS ORDERED: Heparin 10,000 UNITS/ 10 ML VIAL SLOW IVP SCH (12:45)
[2021-07-06] MEDS ORDERED: Sterile Water 10 ML VIAL IVP SCH (14:45)
[2021-07-06] MEDS ORDERED: Activase 2 MG VIAL CATH SCH (14:45)
[2021-07-06] MEDS: Lorazepam 2 MG/ML VIAL SLOW IVP PRN ×4 (14:51→16:03)
[2021-07-06] MEDS: Morphine 10 MG/ML VIAL SLOW IVP PRN ×8 (14:55→18:16)
[2021-07-06] MEDS ORDERED: Morphine 4 MG/ML VIAL SLOW IVP PRN (16:45)
[2021-07-06] MEDS ORDERED: DC Sedation Protocol FS ONE (16:46)
[2021-07-06 19:11] VITALS: BP 109/62; TEMP 102.7
[2021-07-06] MEDS ORDERED: Cefepime 2 GM in Sodium Chloride 0.9% 100 ML IVPB SCH (22:00)
== END 2021-07-07 03:15 | disposition expired | DRG 963 ==
LOC: ERS 20:10 → CCU 20:21 → SURG B 07-06 17:12
PROVIDERS: ADMIT Surgery; ATTEND Surgery
PROC: 5A1955Z Respiratory Ventilation, Greater than 96 Consecutive Hours (ICD-10-PCS; principal; 2021-07-01)
PROC: 0HQ1XZZ Repair Face Skin, External Approach (ICD-10-PCS; 2021-07-01)
PROC: 0HQ4XZZ Repair Neck Skin, External Approach (ICD-10-PCS; 2021-07-01)
PROC: 0D9670Z Drainage of Stomach with Drainage Device, Via Natural or Artificial Opening (ICD-10-PCS; 2021-07-01)
PROC: 0WP930Z Removal of Drainage Device from Right Pleural Cavity, Percutaneous Approach (ICD-10-PCS; 2021-07-01)
PROC: 0W9930Z Drainage of Right Pleural Cavity with Drainage Device, Percutaneous Approach (ICD-10-PCS; 2021-07-01)
DX: J96.00 Acute respiratory failure, unspecified whether with hypoxia or hypercapnia; S27.0XXA Traumatic pneumothorax, initial encounter; G93.6 Cerebral edema; E87.2 Acidosis; S05.32XA Ocular laceration without prolapse or loss of intraocular tissue, left eye, initial encounter; D62 Acute posthemorrhagic anemia; T79.7XXA Traumatic subcutaneous emphysema, initial encounter; S02.609B Fracture of mandible, unspecified, initial encounter for open fracture; Z51.5 Encounter for palliative care; Z66 Do not resuscitate; Z20.822 Contact with and (suspected) exposure to COVID-19; S02.40DB Maxillary fracture, left side, initial encounter for open fracture; R13.12 Dysphagia, oropharyngeal phase; R40.20 Unspecified coma; E87.6 Hypokalemia; E83.39 Other disorders of phosphorus metabolism; Y92.481 Parking lot as the place of occurrence of the external cause; Z52.9 Donor of unspecified organ or tissue; R40.2112 Coma scale, eyes open, never, at arrival to emergency department; R40.2312 Coma scale, best motor response, none, at arrival to emergency department; R40.2212 Coma scale, best verbal response, none, at arrival to emergency department; S02 Fracture of skull and facial bones
CPT/HCPCS: 12015; 31624; 36415; 36600; 70450; 70498; 71045; 71250; 71260; 72125; 74177; 80048; 80053; 81003; 81015; 82150; 82248; 82550; 82553; 82805; 82977; 83036; 83605; 83690; 83735; 84100; 84484; 85025; 85384; 85610; 85730; 86769; 86850; 86900; 86901; 87205; 93005; 93010; 93306; 94002; 94003; 96365; C9113; G0390; J0360; J0692; J1644; J1940; J2060; J2250; J2270; J2543; J3010; J3475; J3480; J3490; J7030; J7050; P9045; P9047; Q9967; U0002